=== PATIENT | male | born 1965 | race Caucasian/White ===

== ENCOUNTER 2018-06-02 14:24 | Inpatient (IN) | payer OTHER ==
[~2018-06-02] VITALS: Ht 185.4 cm; Wt 199.1 kg
--- NOTE | 2018-06-02 14:45 | NUR ---
BRIAN RA 52 YEAR OLD MALE C/O SOB, NAUSEA WHILE BEING TRANSFERED TO SNF FROM [facility] THEN BROUGHT TO [facility]. ALERT AND OREINTED X3, BREATHING EVEN, PATEINT DENIES PAIN AT THIS TIME. AWAITING TO BE SEEN BY .
[2018-06-02 15:54] LABS: BASOPHILS % (AUTO) 0.7 % (0.0-2.0); EOSINOPHILS % (AUTO) 2.5 % (0.0-6.0); HEMATOCRIT 44 % (39-51); LYMPHOCYTES # (AUTO) 0.7 /CMM (0.8-4.8); LYMPHOCYTES % (AUTO) 9.6 % (20.0-44.0); MEAN CORPUSCULAR HGB CONC 32 g/dl (31.0-36.0); MEAN CORPUSCULAR VOLUME 91 fL (80-96); MONOCYTES # (AUTO) 0.4 /CMM (0.1-1.30); MONOCYTES % (AUTO) 6.2 % (2.0-12.0); NEUTROPHILS # (AUTO) 5.5 /CMM (1.8-8.9); PLATELET COUNT (AUTO) 220 /CMM (150-450); RED BLOOD CELL COUNT(AUTO) 4.87 MIL/uL (4.5-6.0); WHITE BLOOD COUNT (AUTO) 6.8 K/uL (4.3-11.0)
[2018-06-02 16:15] LABS: CALCIUM, SERUM 9.4 mg/dL (8.5-10.1); CHLORIDE 102 mmol/L (98-107); CREATININE 0.9 mg/dL (0.6-1.3); GLUCOSE 95 mg/dL (74-106); POTASSIUM 4.5 mmol/L (3.5-5.1); SODIUM SERUM 140 mmol/L (136-145); UREA NITROGEN, BLOOD 18 mg/dL (7-18)
[2018-06-02 16:18] LABS: CARBON DIOXIDE 40 mmol/L (21-32)
[2018-06-02 16:27] LABS: ALKALINE PHOSPHATASE 63 U/L (46-116); BILIRUBIN,DIRECT 0.1 mg/dL (0.0-0.2); BILIRUBIN,TOTAL 0.3 mg/dL (0.2-1.0)
[2018-06-02 16:28] LABS: ALANINE AMINOTRANSFERASE 18 U/L (12-78); ALBUMIN 3.1 g/dL (3.4-5.0); ASPARTATE AMINOTRANSFERASE 8 U/L (15-37); TOTAL PROTEIN, SERUM 7.2 g/dL (6.4-8.2)
[2018-06-02 17:08] LABS: ABG BASE EXCESS 9.1 mmol/L; ABG OXYGEN SATURATION 88.3 % (92.0-98.5); ABG PH 7.358 (7.350-7.450); ABG PO2 55.7 mmHg (75.0-100.0); AaDO2 12.6 mmHg; COHb 1.4 % (0.5-1.5); MetHb 0.3 % (0.0-1.5); O2Hb 86.8 % (94.0-97.0); SITE, ABG Right Brachial; VENT MODE, BG ROOM AIR
--- NOTE | 2018-06-02 17:37 | NUR ---
TURNED IN FACESHEET TO ADMITTING
[2018-06-02 17:52] LABS: APPEARANCE,URINE Clear (CLEAR); BILIRUBIN,URINE Negative (NEGATIVE); BLOOD, URINE Moderate Ery/uL (NEGATIVE); COLOR,URINE Yellow (YELLOW); KETONES,URINE Negative (NEGATIVE); LEUKOCYTE ESTERASE ,URINE Negative (NEGATIVE); NITRITE, URINE Negative (NEGATIVE); PH,URINE 7.5 (5.0-8.0); PROTEIN,URINE Negative (NEGATIVE); UGLUCOSE Negative (NEGATIVE)
[2018-06-02 18:03] LABS: BACTERIA,URINE None seen /HPF (None Seen); SQUAMOUS EPITHELIAL CELL,UR Few /HPF (None Seen); WBC,URINE 0-2 /HPF (0-3)
--- NOTE | 2018-06-02 18:22 | NUR ---
KRYSTAL FROM [facility] NANOTECHNOLOGY ENGINEERING TECHNOLOGIST CALLED TO FOLLOW UP ON PATIENT STATUS
--- NOTE | 2018-06-02 18:25 | NUR ---
TRUST MANAGER ASSISTANT NUMBER GILMER [phone] [facility] [id number] DISCHARGE [phone]
--- NOTE | 2018-06-02 18:43 | NUR ---
PT. OVER THE WEIGHT LIMIT FOR CT (442 LBS.). INFORMED ER ABOUT IT.
--- NOTE | 2018-06-02 18:51 | NUR ---
DINNER PROVIDED FOR PATIENT. PATIENT REMAINS STABLE WITH NO DISTRESS NOTED. DENIES PAIN AT THIS TIME. WILL CONTINUE TO MONITOR
--- NOTE | 2018-06-02 19:12 | NUR ---
JANETTE PAGED, AQUATIC SCIENTIST
--- NOTE | 2018-06-02 19:27 | NUR ---
PATIENT WAITING TO BE ADMITTED. WAITING FOR APPROVAL. REPORT GIVEN TO AUDREY FOR GEO
--- NOTE | 2018-06-02 19:37 | NUR ---
CALLED NURSING SUP. FOR TELE BED
--- NOTE | 2018-06-02 19:49 | NUR ---
TELE 319
[2018-06-02] MEDS ORDERED: ONDANSETRON HCL/PF 4 MG/2 ML VIAL IVP PRN (20:00)
[2018-06-02] MEDS ORDERED: HYDROCODONE/APAP 5/325MG 1 EACH TABLET PO PRN (20:00)
[2018-06-02] MEDS ORDERED: Z GUARD REMEDY 2 OZ OINT TP PRN (20:00)
[2018-06-02] MEDS ORDERED: MAGNESIUM HYDROXIDE 30 ML UDC PO PRN (20:00)
[2018-06-02] MEDS ORDERED: MAG HYDROX/AL HYDROX/SIMETH 30 ML UDC PO PRN (20:00)
[2018-06-02] MEDS ORDERED: ZOLPIDEM TARTRATE 5 MG TABLET PO PRN (20:00)
--- NOTE | 2018-06-02 20:15 | NUR ---
REPORT GIVEN TO JOSELO LIU. PT AWAITING TRANSFER TO FLOOR.
[2018-06-02] MEDS ORDERED: DOCU100C36 PO (20:18)
[2018-06-02] MEDS ORDERED: PANT40TA2 PO (20:18)
[2018-06-02] MEDS ORDERED: DRON400T2 PO (20:18)
[2018-06-02] MEDS ORDERED: MODA200T22 PO (20:18)
[2018-06-02] MEDS ORDERED: LEVO500T75 PO (20:18)
[2018-06-02] MEDS ORDERED: METO50TA16 PO (20:18)
[2018-06-02] MEDS ORDERED: FLUT16SP BNOSTRILS (20:18)
[2018-06-02] MEDS ORDERED: TAMS0.4C34 PO (20:18)
[2018-06-02] MEDS ORDERED: POLY17PO4 PO (20:18)
[2018-06-02] MEDS ORDERED: SACC250C PO (20:18)
[2018-06-02] MEDS ORDERED: APIX5TAB PO (20:18)
[2018-06-02] MEDS ORDERED: FEE PK DOSING 1 MIN EA MC ONE (20:19)
[2018-06-02] MEDS: VANCOMYCIN 1.5 GM in IV D5W 500 ML IV SCH (21:32)
[2018-06-02 21:35] VITALS: BP 120/83
--- NOTE | 2018-06-02 21:35 | NUR ---
RN ADMITTING NOTES ADMITTED PT TO TELE ROOM 319 WITH ADMITTING DX: ACUTE RESPIRATORY DISTRESS. A/OX4. PT ON 3L O2, SATTING 95%. PT UNABLE TO LIE ON BED. NO C/O PAIN AT THIS TIME. PLACED ON TELEMONITOR. VS TAKEN, SKIN AND BODY ASSESSMENT ON LOWER EXTREMITIES NOT DONE, PT REFUSED TO REMOVE PANTS AND SOCKS. ORIENTED TO ROOM AND USE OF CALL LIGHT. WILL CONT TO MONITOR
[2018-06-02] MEDS ORDERED: POLYETHYLENE GLYCOL 3350 17 GM POWD.PACK PO PRN (23:00)
[2018-06-02] MEDS ORDERED: DOCUSATE SODIUM 100 MG CAPSULE PO PRN (23:00)
--- NOTE | 2018-06-02 23:15 | NUR ---
RN NOTES SEEN AND EXAMINED BY DR FUNG, ALL QUESTIONS AND CONCERNS ANSWERED BY MD. MD ORDERED GIVE LASIX IV 60MG IV NOW THEN DAILY. ORDERS NOTED AND CARRIED OUT
[2018-06-02] MEDS ORDERED: FUROSEMIDE 40 MG/4 ML VIAL IV SCH (23:30)
[2018-06-03] VITALS (68 sets, daily range): BP systolic 61–156; BP diastolic 17–134
--- NOTE | 2018-06-03 | NUR ---
RN NOTES NOTED PT TACHYPNEIC AND C/O SOB. HOB ELEVATED. SPO2 ON 85. O2 TITRATED UP TO 6L, STILL NOTED DESATTING. PLACED ON NON REBREATHER MASK, SPO2 WENT UP TO 95%. DR FUNG STILL IN THE UNIT, NOTIFIED RE: PT'S CONDITION, PER CONT TO MONITOR
--- NOTE | 2018-06-03 00:10 | NUR ---
RN NOTES NOTED PT STILL TACHYPNEIC AND C/O SOB. SPO2 DROPS TO 80% ON NONREBREATHER MASK, ANJELICA MOTA MADE AWARE, DR FUNG NOTIFIED. PT WAS SEEN BY , ORDERED OK TO TRANSFER TO ICU
--- NOTE | 2018-06-03 00:40 | NUR ---
RECEIVED PT IN RESPIRATORY DISTRESS ON NON REBREATHER MASK @ 15L. PT IS VISIBLY SHORT OF BREATH USING ACCESSORY MUSCLES IN EXCESS. PT WILL BE PLACED ON BIPAP BY RT WITH SETTING @ 18/8, FIO2 100%, PRESSURE SUPPORT 10. PT IS A/O X 4 BUT UNABLE TO VERBALIZE WELL DUE TO SOB. PT IS ON TELE WITH ST ON THE MONITOR. PT HAS RAC 18G THAT IS CLEAN DRY INTACT AND PATENT WITH SALINE FLUSH. PT GIVEN LASIX AND CUMMINGS WILL BE PLACED. BED IN LOW LOCK POSITION WITH RAILS UP X 2. CALL LIGHT WITHIN REACH AND ALL SAFETY MEASURE ENSURED AND CARRIED OUT. WILL CONTINUE TO MONITOR.
[2018-06-03] MEDS: CEFEPIME 1 GM in IV NS 0.9% 50 ML IV SCH ×2 (00:43→10:02)
--- NOTE | 2018-06-03 01:00 | NUR ---
CUMMINGS CATHETER PLACED WITH GOOD URINE FLOW.
[2018-06-03 04:44] LABS: BASOPHILS % (AUTO) 0.3 % (0.0-2.0); EOSINOPHILS % (AUTO) 0.6 % (0.0-6.0); HEMATOCRIT 44 % (39-51); HEMOGLOBIN 13.7 g/dL (13.5-17.5); LYMPHOCYTES # (AUTO) 0.2 /CMM (0.8-4.8); MEAN CORPUSCULAR HGB CONC 31 g/dl (31.0-36.0); MEAN CORPUSCULAR VOLUME 92 fL (80-96); MONOCYTES # (AUTO) 0.4 /CMM (0.1-1.30); MONOCYTES % (AUTO) 2.8 % (2.0-12.0); NEUTROPHILS # (AUTO) 14.9 /CMM (1.8-8.9); NEUTROPHILS % (AUTO) 95.3 % (43.0-81.0); PLATELET COUNT (AUTO) 235 /CMM (150-450); RED BLOOD CELL COUNT(AUTO) 4.79 MIL/uL (4.5-6.0); WHITE BLOOD COUNT (AUTO) 15.6 K/uL (4.3-11.0)
[2018-06-03 05:00] LABS: CALCIUM, SERUM 9.2 mg/dL (8.5-10.1); CREATININE 1.5 mg/dL (0.6-1.3); MAGNESIUM 1.6 mg/dL (1.8-2.4); POTASSIUM 4.7 mmol/L (3.5-5.1)
[2018-06-03] MEDS: VANCOMYCIN 1.5 GM in IV D5W 500 ML IV SCH (05:10)
--- NOTE | 2018-06-03 06:20 | NUR ---
PT BLOOD PRESSURE IS IN THE 60-70s PERFORMED ON MULTIPLE EXTREMITIES. WILL CONTACT DR. FUNG OFFSET SECOND PRESS OPERATOR FOR PRESSOR ORDERS.
--- NOTE | 2018-06-03 06:30 | NUR ---
NOTIFIED DR FUNG THAT PT BLOOD PRESSURE IS LOW IN THE 60-70, BUT MAY BE INACCURATE DUE TO PLACEMENT. RECEIVED ORDERS TO GIVE LEVOPHED SINGLE DOSE IF BLOOD PRESSURE MAINTAINS LOW. ALSO RECEIVED ORDERS FOR A PICC LINE. READBACK ORDERS PERFORMED AND ORDERS CARRIED OUT.
--- NOTE | 2018-06-03 06:50 | NUR ---
CONTINUED TO TRY TO GET BLOOD PRESSURE AND GOT BLOOD PRESSURE 97/49. WILL LET RECYCLE TO VERIFY GOOD BLOOD PRESSURE PLACEMENT. NO NEED FOR PRESSORS AT THIS TIME.
--- NOTE | 2018-06-03 07:00 | NUR ---
REPORT RECEIVED FROM AKIRA, DROWSY BUT NODS TO QUESTIONS APPROPRIATELY, FOLLOWS SIMPLE COMMANDS "SHOW ME 2 FINGERS"
--- NOTE | 2018-06-03 07:00 | NUR ---
BLOOD PRESSURE IS NOW 102/62. WILL CONTINUE TO MONITOR AND ENDORSE TO AM SHIFT.
[2018-06-03] MEDS: PANTOPRAZOLE 40 MG TABLET.DR PO SCH (07:30)
[2018-06-03 08:13] LABS: ABG BASE EXCESS 5.8 mmol/L; ABG OXYGEN SATURATION 92.7 % (92.0-98.5); ABG PCO2 76.4 mmHg (35.0-45.0); ABG PH 7.283 (7.350-7.450); ABG PO2 68.7 mmHg (75.0-100.0); AaDO2 275.1 mmHg; COHb 1.3 % (0.5-1.5); MetHb 0.6 % (0.0-1.5); O2Hb 90.9 % (94.0-97.0); SITE, ABG Right Radial
[2018-06-03] MEDS: FLUTICASONE PROPIONATE 16 GM BOTTLE NS SCH (09:00)
[2018-06-03] MEDS: TAMSULOSIN 0.4 MG CAP.SR.24H PO SCH (09:00)
[2018-06-03] MEDS ORDERED: METOPROLOL TARTRATE 50 MG TABLET PO SCH (09:00)
[2018-06-03] MEDS: DRONEDARONE HYDROCHLORIDE 400 MG TABLET PO SCH ×2 (09:00→17:00)
[2018-06-03] MEDS: APIXABAN 5 MG TABLET PO SCH ×2 (09:00→17:00)
[2018-06-03] MEDS: MODAFINIL 100 MG TABLET PO SCH (09:00)
[2018-06-03] MEDS ORDERED: FUROSEMIDE 40 MG/4 ML VIAL IV SCH (09:00)
[2018-06-03] MEDS ORDERED: Magnesium 1GM/D5W 100ML PREMIX 100 ML IV SCH (09:18)
[2018-06-03] MEDS: LACTOBACILLUS RHAMNOSUS GG 1 EACH CAP.SPRINK PO SCH ×2 (09:30→17:00)
--- NOTE | 2018-06-03 09:45 | NUR ---
NPO INCLUDING MEDS AT THIS TIME PER DR TRIVEDI UNTIL PT IS MORE ALERT AND AWAKE ON THE BIPAP
[2018-06-03] MEDS: ACETYLCYSTEINE 10% SOLN 400 MG/4 ML VIAL NEB SCH ×3 (10:50→23:36)
[2018-06-03] MEDS: ALBUTEROL HALF STRENGTH 1.25 MG/3 ML VIAL.NEB NEB SCH ×3 (10:50→23:36)
[2018-06-03] MEDS: IPRATROPIUM NEB FS 0.5 MG/2.5 ML AMPUL.NEB NEB SCH ×3 (10:50→23:37)
[2018-06-03 11:31] LABS: ABG BASE EXCESS 3.3 mmol/L; ABG OXYGEN SATURATION 92.9 % (92.0-98.5); ABG PCO2 64.7 mmHg (35.0-45.0); ABG PH 7.306 (7.350-7.450); ABG PO2 67.7 mmHg (75.0-100.0); AaDO2 143.1 mmHg; COHb 1.2 % (0.5-1.5); MetHb 0.5 % (0.0-1.5); O2Hb 91.3 % (94.0-97.0); SITE, ABG Right Radial
--- NOTE | 2018-06-03 14:00 | NUR ---
PICC LINE PLACEMENT ON rIGHT AC DONE AT BEDSIDE BY TECH;
--- NOTE | 2018-06-03 15:00 | NUR ---
TRANSFERRED TO BARIATRIC BED WITHOUT INCIDENT
--- NOTE | 2018-06-03 16:47 | NUR ---
MALATHI HERCULES AWARE OF CUMMINGS CATHETER IRRIGATION (NO SIGNIFICANT URINE OUTPUT DESPITE IRRIGATION,NO ORDERS AT THIS TIME
[2018-06-03] MEDS: VANCOMYCIN 1.25 GM in IV D5W 500 ML IV SCH (17:35)
--- NOTE | 2018-06-03 18:14 | NUR ---
STILL ON / OFF AWAKE ON BIPAP, UNABLE TO GIVE PO MEDS AT THIS TIME, MALATHI HERCULES AWARE ELIQUIS/MUSTMARCIA/MANUELE HELD AT THIS TIME
--- NOTE | 2018-06-03 19:00 | NUR ---
RECEIVED PT IN NO ACUTE DISTRESS IN BED. PT ON BIPAP WITH SETTING @ 18/8, FIO2 40%, PRESSURE SUPPORT 10. PT IS A/O X 4 BUT IS IN AND OUT OF SLEEP. PT IS ON TELE WITH SR ON THE MONITOR. PT HAS RAC 18G THAT IS CLEAN DRY INTACT AND PATENT WITH SALINE FLUSH. PT HAS RICARDA PICC LINE THAT IS CLEAN DRY INTACT AND PATENT WITH NS @ TKO. PT HAS CUMMINGS CATH THAT IS CLEAN DRY AND INTACT WITH AUDRA URINE DRAINING INTO BAG. BED IN LOW LOCK POSITION WITH RAILS UP X 2. CALL LIGHT WITHIN REACH AND ALL SAFETY MEASURE ENSURED AND CARRIED OUT. WILL CONTINUE TO MONITOR.
--- NOTE | 2018-06-03 19:09 | NUR ---
REPORT GIVEN TO AKIRA LIU
[2018-06-03] MEDS: CEFEPIME 2 GM in IV D5W 100 ML IV SCH (22:13)
[2018-06-04] VITALS (85 sets, daily range): BP systolic 67–130; BP diastolic 29–93
[2018-06-04] MEDS: ALBUTEROL HALF STRENGTH 1.25 MG/3 ML VIAL.NEB NEB SCH ×6 (03:53→23:14)
[2018-06-04] MEDS: IPRATROPIUM NEB FS 0.5 MG/2.5 ML AMPUL.NEB NEB SCH ×6 (03:53→23:14)
--- NOTE | 2018-06-04 03:54 | NUR ---
UNABLE TO GET BLOOD PRESSURE ABOVE 64 SYSTOLIC FROM BLOOD PRESSURE MACHINE AND WILL DISCONTINUE USING IT. WILL CONTINUE TO PERFORM MANUAL BLOOD PRESSURES Q1H AND ENDORSE TO AM SHIFT.
[2018-06-04 04:39] LABS: EOSINOPHILS % (AUTO) 2.8 % (0.0-6.0); HEMATOCRIT 39 % (39-51); HEMOGLOBIN 12.4 g/dL (13.5-17.5); LYMPHOCYTES # (AUTO) 0.5 /CMM (0.8-4.8); LYMPHOCYTES % (AUTO) 3.6 % (20.0-44.0); MEAN CORPUSCULAR HGB CONC 32 g/dl (31.0-36.0); MEAN CORPUSCULAR VOLUME 91 fL (80-96); MONOCYTES # (AUTO) 0.7 /CMM (0.1-1.30); MONOCYTES % (AUTO) 4.9 % (2.0-12.0); NEUTROPHILS # (AUTO) 13.4 /CMM (1.8-8.9); NEUTROPHILS % (AUTO) 88.7 % (43.0-81.0); PLATELET COUNT (AUTO) 205 /CMM (150-450); WHITE BLOOD COUNT (AUTO) 15.1 K/uL (4.3-11.0)
[2018-06-04 04:50] LABS: ALBUMIN 2.4 g/dL (3.4-5.0); BILIRUBIN,TOTAL 0.5 mg/dL (0.2-1.0); CALCIUM, SERUM 8.5 mg/dL (8.5-10.1); CREATININE 2.7 mg/dL (0.6-1.3); MAGNESIUM 1.8 mg/dL (1.8-2.4); PHOSPHORUS 4.3 mg/dL (2.5-4.9); POTASSIUM 4.6 mmol/L (3.5-5.1)
[2018-06-04] MEDS: VANCOMYCIN 1.25 GM in IV D5W 500 ML IV SCH (05:00)
--- NOTE | 2018-06-04 05:18 | NUR ---
VANCOMYCIN TROUGH 22, VANCOMYCIN DOSE HELD.
--- NOTE | 2018-06-04 06:21 | NUR ---
PERFORMED MANUAL BLOOD PRESSURE AND GOT LOW READING WITH 68/42. NOTIFIED CHARGE NURSE AND WILL START PT ON LEVOPHED DRIP PER ORDERS.
[2018-06-04] MEDS ORDERED: NOREPINEPHRINE 4 MG/4 ML AMPUL IV ONE (06:34)
[2018-06-04] MEDS: NOREPINEPHRINE 8 MG in IV D5W 500 ML IV PRN ×2 (06:37→15:09)
--- NOTE | 2018-06-04 06:49 | NUR ---
PT REMAINS IN NO ACUTE DISTRESS IN BED. PT BLOOD PRESSURE IS NOW WNL @ 105/56. PT IS NOW ON LEVO @ 2MCG AND TOLERATING WELL. ALL NEEDS MET, ALL ORDERS CARRIED OUT. WILL ENDORSE CARE TO AM RN FOR CONTINUITY OF CARE.
--- NOTE | 2018-06-04 07:00 | NUR ---
RN NOTES RECEIVED PT ON BED, ON BIPAP, TOLERATING CURRENT SETTING WELL, NO DISTRESS NOTED, O2 SAT 97% , ON TELE SR HR IN 80'S , R AC IV SITE G18 AND R UPPER ARM PICC LINE SITE CLEAN, DRY AND INTACT, LEVO AT 2MCG/ MIN RUNNING , CUMMINGS CATH INTACT AND DRINING TO GRAVITY WITH AUDRA COLOR URINE , BED IN LOW LOCK POSITION WITH RAILS UP X 3. CALL LIGHT WITHIN REACH , ALL SAFETY MEASURE ENSURED , WILL CONTINUE TO MONITOR.
[2018-06-04] MEDS: PANTOPRAZOLE 40 MG TABLET.DR PO SCH ×2 (07:30→08:16)
[2018-06-04] MEDS: ACETYLCYSTEINE 10% SOLN 400 MG/4 ML VIAL NEB SCH ×3 (07:35→23:14)
[2018-06-04] MEDS: IV NS 0.9% 1,000 ML IV SCH ×2 (08:08→15:08)
[2018-06-04] MEDS: LACTOBACILLUS RHAMNOSUS GG 1 EACH CAP.SPRINK PO SCH ×2 (08:15→16:45)
[2018-06-04] MEDS: DRONEDARONE HYDROCHLORIDE 400 MG TABLET PO SCH ×2 (08:15→16:45)
[2018-06-04] MEDS: MODAFINIL 100 MG TABLET PO SCH (08:15)
[2018-06-04] MEDS: TAMSULOSIN 0.4 MG CAP.SR.24H PO SCH (08:16)
[2018-06-04] MEDS: APIXABAN 5 MG TABLET PO SCH ×3 (08:17→16:45)
[2018-06-04] MEDS: FLUTICASONE PROPIONATE 16 GM BOTTLE NS SCH (08:17)
--- NOTE | 2018-06-04 08:53 | NUR ---
pt taken off bipap and placed on 1lnc per dr alvarado's order. abg to be taken in 1 hr Addendum: 06/04/18 at 0853 by ASTRID ECHEVERRIA RT Amended: Links added.
[2018-06-04] MEDS: CEFEPIME 2 GM in IV D5W 100 ML IV SCH ×2 (09:49→22:18)
--- NOTE | 2018-06-04 10:00 | NUR ---
RN NOTES UNABLE TO GET GOOD BP READY ON L ARM. BP TAKEN ON R RADIAL ARTERY .
[2018-06-04 10:15] LABS: ABG BASE EXCESS 7.3 mmol/L; ABG OXYGEN SATURATION 85.4 % (92.0-98.5); ABG PCO2 69.9 mmHg (35.0-45.0); ABG PH 7.326 (7.350-7.450); ABG PO2 51.9 mmHg (75.0-100.0); AaDO2 94.5 mmHg; COHb 0.8 % (0.5-1.5); MetHb 0.4 % (0.0-1.5); O2Hb 84.4 % (94.0-97.0); SITE, ABG Left Radial; VENT MODE, BG nasal cannula
[2018-06-04] MEDS: VANCOMYCIN 1 GM in IV D5W 250 ML IV SCH ×2 (10:48→23:22)
--- NOTE | 2018-06-04 12:00 | NUR ---
RN NOTES PT REFUSED TO EAT LUNCH, ON 3 L O2 N/C O2 SAT 89%, NO DISTRESS NOTED, CONTINUE TO MONITOR.
--- NOTE | 2018-06-04 14:00 | NUR ---
RN NOTES RT NOTIFIED REGARDING NOCTURNAL BIPAP .
[2018-06-04 14:57] LABS: APPEARANCE,URINE SL CLOUDY (CLEAR); BILIRUBIN,URINE NEGATIVE (NEGATIVE); BLOOD, URINE 3+ Ery/uL (NEGATIVE); COLOR,URINE YELLOW (YELLOW); KETONES,URINE NEGATIVE (NEGATIVE); LEUKOCYTE ESTERASE ,URINE NEGATIVE (NEGATIVE); NITRITE, URINE NEGATIVE (NEGATIVE); PROTEIN,URINE 1+ mg/dl (NEGATIVE); UGLUCOSE NEGATIVE (NEGATIVE); UROBILINOGEN,URINE 0.2 EU/dL (0.2)
[2018-06-04 15:10] LABS: CREATININE, URINE 160.9 MG/DL (30.0-125.0)
[2018-06-04 15:12] LABS: BACTERIA,URINE Rare /HPF (None Seen); RBC,URINE 51-80 /HPF (0-2); SQUAMOUS EPITHELIAL CELL,UR Few /HPF (None Seen)
[2018-06-04 15:48] LABS: URINE TOTAL PROTEIN 85.8 mg/dL (0-11.9)
[2018-06-04 15:59] LABS: EOSINOPHIL,URINE None Seen
--- NOTE | 2018-06-04 18:23 | NUR ---
RN NOTES PT STABLE, O2 SAT 89%, PT ON LEVO AT 6MCG/MIN AT THIS TIME, NS AT 200CC /HR RUNNING VIA R UPPER ARM PICC LINE, PT REFUSED TO TURN SIDE TO SIDE, SR UP x3, CALL LIGHT WITHIN EASY REACH, WILL ENDOSE TO [facility] REPORTER NURSE FOR CONTINUITY OF CARE .
--- NOTE | 2018-06-04 19:00 | NUR ---
RECEIVED PT IN NO ACUTE DISTRESS IN BED. PT ON VENTURI MASK @ 35%/9 LPM AND TOLERATING WELL WITH O2 SAT 2 88%. PT HAS NOCTURNAL AVAPS WITH SETTING @ RATE 14, TV 600, FIO2 35%, PSV- 5-25, PEEP 10. PT IS A/O X 4 BUT IS IN AND OUT OF SLEEP. PT IS ON TELE WITH SR ON THE MONITOR. PT HAS RAC 18G THAT IS CLEAN DRY INTACT AND PATENT WITH SALINE FLUSH. PT HAS RICARDA PICC LINE THAT IS CLEAN DRY INTACT AND PATENT WITH LEVO @ 6MCG AND NS @ TKO. PT HAS CUMMINGS CATH THAT IS CLEAN DRY AND INTACT WITH AUDRA URINE DRAINING INTO BAG. BED IN LOW LOCK POSITION WITH RAILS UP X 2. CALL LIGHT WITHIN REACH AND ALL SAFETY MEASURE ENSURED AND CARRIED OUT. WILL CONTINUE TO MONITOR.
--- NOTE | 2018-06-04 19:50 | NUR ---
RCVD PT ON VENTURI MASK 35%,9L. PLACED PT ON NOCTURNAL AVAPS MODE, RATE 14, TV 600, PEEP 10. PSV 5-25 PER MD'S ORDER. SKIN REDNESS NOTED AROUND THE BRIDGE OF THE NOSE, ALEXA CHAMPION NOTIFIED. Q4 BREATHING TX GIVEN, NO ADVERSE REACTION NOTED. WILL CONTINUE TO MONITOR THE PT.
[2018-06-05] VITALS (117 sets, daily range): BP systolic 71–138; BP diastolic 33–80
[2018-06-05] MEDS: ALBUTEROL HALF STRENGTH 1.25 MG/3 ML VIAL.NEB NEB SCH ×6 (03:16→22:57)
[2018-06-05] MEDS: IPRATROPIUM NEB FS 0.5 MG/2.5 ML AMPUL.NEB NEB SCH ×6 (03:16→22:57)
[2018-06-05 04:50] LABS: BASOPHILS % (AUTO) 0.2 % (0.0-2.0); EOSINOPHILS % (AUTO) 4.1 % (0.0-6.0); HEMATOCRIT 41 % (39-51); HEMOGLOBIN 12.9 g/dL (13.5-17.5); LYMPHOCYTES # (AUTO) 1.2 /CMM (0.8-4.8); LYMPHOCYTES % (AUTO) 10.1 % (20.0-44.0); MEAN CORPUSCULAR HGB CONC 32 g/dl (31.0-36.0); MEAN CORPUSCULAR VOLUME 91 fL (80-96); MONOCYTES # (AUTO) 0.5 /CMM (0.1-1.30); NEUTROPHILS # (AUTO) 9.8 /CMM (1.8-8.9); NEUTROPHILS % (AUTO) 81.6 % (43.0-81.0); PLATELET COUNT (AUTO) 205 /CMM (150-450); RED BLOOD CELL COUNT(AUTO) 4.48 MIL/uL (4.5-6.0)
[2018-06-05 05:08] LABS: ALBUMIN 2.4 g/dL (3.4-5.0); BILIRUBIN,TOTAL 0.6 mg/dL (0.2-1.0); CALCIUM, SERUM 8.9 mg/dL (8.5-10.1); CREATININE 1.4 mg/dL (0.6-1.3); PHOSPHORUS 3.1 mg/dL (2.5-4.9); POTASSIUM 4.7 mmol/L (3.5-5.1); TOTAL PROTEIN, SERUM 6.2 g/dL (6.4-8.2)
[2018-06-05] MEDS: NOREPINEPHRINE 8 MG in IV D5W 500 ML IV PRN ×2 (05:09→09:58)
--- NOTE | 2018-06-05 07:05 | NUR ---
PT REMAINS IN NO ACUTE DISTRESS IN BED. PT DID NOT HAVE ANY SIGNIFICANT CHANGE IN CONDITION DURING SHIFT. PT TOLERATED NOCTURNAL AVAPS WELL WITH O2 SAT @ 94%. ALL NEEDS MET, ALL ORDERS CARRIED OUT. WILL ENDORSE CARE TO AM RN FOR CONTINUITY OF CARE.
[2018-06-05] MEDS: ACETYLCYSTEINE 10% SOLN 400 MG/4 ML VIAL NEB SCH ×3 (07:17→22:57)
--- NOTE | 2018-06-05 07:35 | NUR ---
INITIAL ASSISTANT PROGRAM MANAGER NOTE RCVD PT SOMNOLENT, ABLE TO OPEN EYES AND FOLLOW COMMANDS WHEN NAME IS CALLED. SR ON MONITOR. OFF BIPAP ON VENTURI MASK TOLERATING WELL. CUMMINGS TO GRAVITY DRAINING CLOUDY, YELLOW URINE. IV SITES C/D/I/PATENT, NO S/O INFILTRATION/PHLEBITIS OBSERVED UPON FLUSHING. PT ON LEVO TITRATING ORDERED. PT ON BARIMAXX BED WITH CONTINUOUS ROTATION IMPLEMENTED. WILL CONTINUE TO MONITOR PT FOR SAFETY AND COMFORT. BED IN LOW AND LOCKED POSITION. CALL LIGHT WITHIN REACH. HEAD OF BED ELEVATED.
[2018-06-05] MEDS ORDERED: IV D5/ 0.9% NACL 1,000 ML IV ONE (08:30)
[2018-06-05] MEDS: DRONEDARONE HYDROCHLORIDE 400 MG TABLET PO SCH ×2 (08:34→16:13)
[2018-06-05] MEDS: LACTOBACILLUS RHAMNOSUS GG 1 EACH CAP.SPRINK PO SCH ×2 (08:34→16:13)
[2018-06-05] MEDS: PANTOPRAZOLE 40 MG TABLET.DR PO SCH (08:34)
[2018-06-05] MEDS: TAMSULOSIN 0.4 MG CAP.SR.24H PO SCH (08:34)
[2018-06-05] MEDS: MODAFINIL 100 MG TABLET PO SCH (08:34)
[2018-06-05] MEDS: FLUTICASONE PROPIONATE 16 GM BOTTLE NS SCH (08:36)
[2018-06-05] MEDS: APIXABAN 5 MG TABLET PO SCH ×2 (08:36→16:13)
[2018-06-05] MEDS: IV D5/ 0.9% NACL 1,000 ML IV PRN ×2 (08:41→21:00)
--- NOTE | 2018-06-05 09:13 | NUR ---
TALENT ACQUISITION SPECIALIST NOTE PT HAS POOR APPETITE ONLY HAD 2 BITES OF REQUESTED OATMEAL. DR. TRIVEDI STARTED PT ON IVF. WILL CONTINUE TO MONITOR.
[2018-06-05] MEDS: CEFEPIME 2 GM in IV D5W 100 ML IV SCH ×2 (09:23→21:10)
[2018-06-05] MEDS: VANCOMYCIN 1 GM in IV D5W 250 ML IV SCH ×2 (10:39→23:04)
--- NOTE | 2018-06-05 12:27 | NUR ---
DIRECTOR HEALTH NOTE PT BECAME MORE LETHARGIC THIS AM, BIPAP WAS RE-STARTED BY RT. DR. TRIVEDI AWARE. ABG REVIEWED BY MD WITHOUT ANY CHANGES ORDERED. PT'S TEMP 100.5 COOLING MEASURES STARTED, PER DR. TRIVEDI NOT TO PANCULTURE PT. WILL CONTINUE TO MONITOR.
[2018-06-05 12:34] LABS: ABG BASE EXCESS 6.1 mmol/L; ABG PCO2 63.4 mmHg (35.0-45.0); ABG PH 7.344 (7.350-7.450); ABG PO2 65.4 mmHg (75.0-100.0); AaDO2 110.5 mmHg; COHb 1.2 % (0.5-1.5); MetHb 0.5 % (0.0-1.5); O2Hb 90.4 % (94.0-97.0); SITE, ABG Right Radial; VENT MODE, BG AVAPS 25/11 600 EPAP 10
[2018-06-05] MEDS ORDERED: NOREPINEPHRINE 16 MG in IV D5W 500 ML IV PRN (13:00)
--- NOTE | 2018-06-05 18:30 | NUR ---
BIOINFORMATICS ENGINEER NOTE PT AWAKE AND ALERT, RESTING IN BED REMAINS ON BIPAP TOLERATING WELL, SR ON MONITOR SHOWING NO S/O DISTRESS/PAIN. CUMMINGS TO GRAVITY DRAINING CLOUDY, YELLOW URINE. IV SITES C/D/I/PATENT. NO S/O INFILTRATION/PHLEBITIS OBSERVED IVF INFUSING ORDERED. LEVO TITRATED DOWN ORDERED. PT'S CARE WILL BE ENDORSED TO NEUROSCIENCE DIRECTOR NA RN FOR CONTINUITY OF CARE. BED IN LOW AND LOCKED POSITION. CALL LIGHT WITHIN REACH. HEAD OF BED ELEVATED.
--- NOTE | 2018-06-05 19:45 | NUR ---
ICU/STUD MASTER/MISTRESS RECEIVED REPORT FROM DAY NURSE. SEE FLOWSHEET FOR ASSESSMENT AND SKIN ISSUES WHICH ARE ADDRESSED, ALONG WITH THE INTERVENTIONS. PT WAS TURNED AND REPOSITIONED FOR COMFORT AND CARE. WILL CONTINUE TO MONITOR THIS PT. PT APPEARS TO BE COMFORTABLE NO ACUTE DISTRESS SEEN AT THIS TIME.
--- NOTE | 2018-06-05 22:45 | NUR ---
MELYSSA [phone] WAS CALLED. PT TALKED TO THIS PERSON. MELYSSA CALLED SAID THAT TO CALL HER IF THERE IS ANY PROBLEMS LATER TONIGHT.
--- NOTE | 2018-06-05 23:26 | NUR ---
TANMAY LARSEN [phone] WAS CALLED BY REQUEST FROM PT. THIS WAS DONE AND LEFT MESSAGE.
[2018-06-06] VITALS (84 sets, daily range): BP systolic 90–153; BP diastolic 44–80
[2018-06-06] MEDS: IPRATROPIUM NEB FS 0.5 MG/2.5 ML AMPUL.NEB NEB SCH ×6 (03:31→23:38)
[2018-06-06] MEDS: ALBUTEROL HALF STRENGTH 1.25 MG/3 ML VIAL.NEB NEB SCH ×6 (03:31→23:38)
[2018-06-06 04:48] LABS: BASOPHILS % (AUTO) 0.2 % (0.0-2.0); EOSINOPHILS % (AUTO) 7.3 % (0.0-6.0); HEMATOCRIT 38 % (39-51); HEMOGLOBIN 12.2 g/dL (13.5-17.5); LYMPHOCYTES # (AUTO) 1.2 /CMM (0.8-4.8); LYMPHOCYTES % (AUTO) 10.9 % (20.0-44.0); MEAN CORPUSCULAR HGB CONC 32 g/dl (31.0-36.0); MEAN CORPUSCULAR VOLUME 90 fL (80-96); MONOCYTES % (AUTO) 8.9 % (2.0-12.0); NEUTROPHILS % (AUTO) 72.7 % (43.0-81.0); PLATELET COUNT (AUTO) 197 /CMM (150-450); WHITE BLOOD COUNT (AUTO) 11.1 K/uL (4.3-11.0)
[2018-06-06 05:01] LABS: CALCIUM, SERUM 8.9 mg/dL (8.5-10.1); MAGNESIUM 1.9 mg/dL (1.8-2.4); PHOSPHORUS 2.4 mg/dL (2.5-4.9); POTASSIUM 4.3 mmol/L (3.5-5.1)
--- NOTE | 2018-06-06 07:37 | NUR ---
INITIAL FIRE FIGHTER AIRPORT NOTE RCVD PT AWAKE AND ALERT, SHOWING NO S/O DISTRESS/PAIN AT THIS TIME. SR ON MONITOR WITH OCCASIONAL PAC's. TOLERATING BIPAP WITH AVAPS SETTINGS WELL. CUMMINGS TO GRAVITY DRAINING CLOUDY, YELLOW URINE. IV SITES C/D/I/PATENT. NO S/O INFILTRATION/PHLEBITIS OBSERVED, IVF INFUSING ORDERED. WILL CONTINUE TO MONITOR PT FOR SAFETY AND COMFORT. BED IN LOW AND LOCKED POSITION. CALL LIGHT WITHIN REACH. HEAD OF BED ELEVATED.
[2018-06-06] MEDS: ACETYLCYSTEINE 10% SOLN 400 MG/4 ML VIAL NEB SCH ×3 (07:58→23:38)
[2018-06-06] MEDS: APIXABAN 5 MG TABLET PO SCH ×2 (08:04→16:04)
[2018-06-06] MEDS: LACTOBACILLUS RHAMNOSUS GG 1 EACH CAP.SPRINK PO SCH ×2 (08:04→16:03)
[2018-06-06] MEDS: MODAFINIL 100 MG TABLET PO SCH (08:04)
[2018-06-06] MEDS: PANTOPRAZOLE 40 MG TABLET.DR PO SCH (08:05)
[2018-06-06] MEDS: TAMSULOSIN 0.4 MG CAP.SR.24H PO SCH (08:05)
[2018-06-06] MEDS: DRONEDARONE HYDROCHLORIDE 400 MG TABLET PO SCH ×2 (08:05→16:03)
[2018-06-06] MEDS: FLUTICASONE PROPIONATE 16 GM BOTTLE NS SCH (08:05)
[2018-06-06] MEDS: CEFEPIME 2 GM in IV D5W 100 ML IV SCH (09:35)
[2018-06-06] MEDS: IV D5/ 0.9% NACL 1,000 ML IV PRN ×2 (09:41→21:28)
--- NOTE | 2018-06-06 09:50 | NUR ---
INTERIOR DESIGN PROGRAM CHAIR NOTE PT TRANSITIONED TO NC TOLERATING WELL. GOOD PO INTAKE, OVERALL IMPROVEMENT SINCE YESTERDAY. WILL CONTINUE TO MONITOR.
[2018-06-06] MEDS: VANCOMYCIN 1 GM in IV D5W 250 ML IV SCH ×2 (11:38→23:09)
[2018-06-06 13:00] LABS: ABG BASE EXCESS 5.7 mmol/L; ABG OXYGEN SATURATION 94.6 % (92.0-98.5); ABG PH 7.391 (7.350-7.450); ABG PO2 74.5 mmHg (75.0-100.0); AaDO2 97.7 mmHg; COHb 1.3 % (0.5-1.5); MetHb 0.3 % (0.0-1.5); O2Hb 93.1 % (94.0-97.0); SITE, ABG Right Radial; VENT MODE, BG NASAL CANNULA
--- NOTE | 2018-06-06 13:18 | NUR ---
GAS ENGINE OPERATOR COMPRESSORS NOTE PT STATED TO FEEL UNWELL, UNABLE TO DESCRIBE IF BEING IN PAIN OR SHORT OF BREATH, APPEARS TIRED, VITAL SIGNS REMAIN STABLE, OFF PRESSORS, AND TOLERATING O2 VIA NASAL CANNULA [address] TRIVEDI INFORMED. RECOMMENDED ABG TO BE DONE. RESULTS COMMUNICATED TO DR. TRIVEDI. RECOMMENDS NO CHANGES. WILL CONTINUE TO MONITOR PT.
[2018-06-06] MEDS ORDERED: K PHOS NEUTRAL 250 MG TABLET PO ONE (15:00)
--- NOTE | 2018-06-06 18:35 | NUR ---
SHIFT ENGINEER NOTE PT REMAINS STABLE OFF BIPAP, TOLERATING O2 VIA NC WELL. SR ON MONITOR. AWAKE AND ALERT, SHOWING NO S/O DISTRESS/PAIN AT THIS TIME. CUMMINGS TO GRAVITY DRAINING CLOUDY, YELLOW URINE. IV SITES C/D/I/PATENT, NO S/O INFILTRATION/PHLEBITIS OBSERVED IVF INFUSING ORDERED. OFF LEVO SINCE THIS AM MAINTAINING BP. GOOD PO INTAKE. PT'S CARE WILL BE ENDORSED TO LEAD APPLICATIONS DEVELOPER RN FOR CONTINUITY OF CARE. BED IN LOW AND LOCKED POSITION. CALL LIGHT WITHIN REACH. HEAD OF BED ELEVATED. PT DECLINED BED BATH THIS AFTERNOON, STATING THAT HE WAS TOO TIRED TO DO IT, ORAL CARE AND FACE WASHED PERFORMED.
--- NOTE | 2018-06-06 19:00 | NUR ---
APRICOT PACKER NOTES RECEIVED PATIENT AWAKE,ALERT NOT IN ANY DISTRESS ,WITH o2 VIA NC 4L/MIN. TOLERATING WELL,+ COUGH ,ENCOURAGED DEEP BREATHING AND COUGHING (NOTED TO HAVE THICK SECRETIONS /PRODUCTIVE COUGH).CONVERSES,COHERENT AND APPROPRIATE. PICC LINE @ RICARDA ,INTACT. COMFORT CARE DONE,NEEDS ATTENDED.
--- NOTE | 2018-06-06 22:00 | NUR ---
3RD GRADE TEACHER NOTES REMIANS STABLE,NOT IN NAY DISTRESS. 2300 OFFERED PATIENT TO HAVE PM CARE(REFUSED BATH RHE WHOLE DAY),PATIENT STILL REFUSING TO GET WASHED UP OR EVEN TO TURN AND REPOSITION.
[2018-06-07] VITALS (35 sets, daily range): BP systolic 83–139; BP diastolic 38–84
--- NOTE | 2018-06-07 | NUR ---
SHOVE UP NOTES REMAINS STABLE ,NOT IN ANY DISTRESS ,STILL AWAKE,TALKING ON THE PHONE,DOES NOT WANT TO USE BIPAP MACHINE AT THIS POINT,MAINTAINED ON NASAL CANNULA.WILL CLOSELY MONITOR .
--- NOTE | 2018-06-07 01:00 | NUR ---
STILL AWAKE,ENCOURAGE PATIEN TO BE ON BIPAP NOW,REFUSED,STATES THAT JUST MENTIONING BIPAP MAKES HIM ANXIOUS AND STRESSED ,HE DOES NOT WANT TO USE BIPAP. WILL CLOSELY MONITOR .WILL KEEP NASAL CANNULA @ 4 L.MIN.
--- NOTE | 2018-06-07 02:00 | NUR ---
SLEEPS ON AND OFF ,SATURATING 90-92% WITH 4 LIOTERS NASAL CANNULA. 0300 AM CARE DONE.TOLERATED FLAY POSITION WITH NO SOB.
[2018-06-07] MEDS: IPRATROPIUM NEB FS 0.5 MG/2.5 ML AMPUL.NEB NEB SCH ×6 (03:42→23:41)
[2018-06-07] MEDS: ALBUTEROL HALF STRENGTH 1.25 MG/3 ML VIAL.NEB NEB SCH ×6 (03:42→23:41)
--- NOTE | 2018-06-07 04:00 | NUR ---
PATIENT DESATURATING MORE OFTEN 88-89 % THEN BACK TO LOW 90'S.TRIED TO CONVINCE PATIENT AGAIN TO BE ON BIPAP NOW(WHILE HES ASLEEP),BUT STILL REFUSING.REMAINS AWAKE AND ALERT , FALLS ASLEEP EASILY BUT AWAKENS EASILY WELL.WILL CONTINUE TO MONITOR.
[2018-06-07 05:30] LABS: BASOPHILS % (AUTO) 0.2 % (0.0-2.0); EOSINOPHILS % (AUTO) 8.6 % (0.0-6.0); HEMATOCRIT 37 % (39-51); HEMOGLOBIN 11.8 g/dL (13.5-17.5); LYMPHOCYTES # (AUTO) 1.8 /CMM (0.8-4.8); LYMPHOCYTES % (AUTO) 21.9 % (20.0-44.0); MEAN CORPUSCULAR HGB CONC 32 g/dl (31.0-36.0); MEAN CORPUSCULAR VOLUME 90 fL (80-96); MONOCYTES % (AUTO) 12.5 % (2.0-12.0); NEUTROPHILS # (AUTO) 4.6 /CMM (1.8-8.9); NEUTROPHILS % (AUTO) 56.8 % (43.0-81.0); PLATELET COUNT (AUTO) 189 /CMM (150-450); RED BLOOD CELL COUNT(AUTO) 4.06 MIL/uL (4.5-6.0); WHITE BLOOD COUNT (AUTO) 8.1 K/uL (4.3-11.0)
[2018-06-07 05:44] LABS: CALCIUM, SERUM 8.6 mg/dL (8.5-10.1); CREATININE 0.9 mg/dL (0.6-1.3); MAGNESIUM 1.7 mg/dL (1.8-2.4); POTASSIUM 4.1 mmol/L (3.5-5.1)
--- NOTE | 2018-06-07 06:00 | NUR ---
PATIENT DESATURATING MORE INTO THE 70'S ,RESPIRATORY THERAPIST WAS ABLE TO CONVINCE PATIENT TO USE BIPAP AFTER EXPLANATION BUT PATIENT NOT HAPPY
--- NOTE | 2018-06-07 07:00 | NUR ---
REPORT GIVEN TO LEONILA LIU
--- NOTE | 2018-06-07 07:15 | NUR ---
SUPERVISOR SEWER SYSTEM INITIAL NOTES RECEIVED PT FROM NIGHTSHIFT RN IN STABLE CONDITION. PT TAKEN OFF BIPAP AT THIS TIME AND SATING 92% ON 4L VIA NC. NO SOB OR ACUTE SIGNS OF DISTRESS NOTED. BREATHING IS EVEN AND UNLABORED. HE DENIES ANY PAIN AT THIS TIME. RIGHT UPPER ARM PICC LINE NOTED TO BE PATENT AND INTACT. NO REDNESS OR SIGNS OF INFILTRATION NOTED. PT TOLERATING IV INFUSION WELL. CUMMINGS CATHETER NOTED TO BE C/D/I. BED IN LOW LOCKED POSITION, SIDE RIAL SUP X2, CALL LIGHT WITHIN REACH. WILL CONTINUE TO MONITOR
[2018-06-07] MEDS: ACETYLCYSTEINE 10% SOLN 400 MG/4 ML VIAL NEB SCH ×3 (07:40→23:41)
--- NOTE | 2018-06-07 09:00 | NUR ---
PADDER CUSHION NOTES: AM CARE PT REFUSING BED BATH AT THIS TIME. PER PT "I WAS CLEANED BY THE PREVIOUS NURSE". YARIEL/CUMMINGS CARE RENDERED.
[2018-06-07] MEDS: DRONEDARONE HYDROCHLORIDE 400 MG TABLET PO SCH ×2 (09:10→16:42)
[2018-06-07] MEDS: FLUTICASONE PROPIONATE 16 GM BOTTLE NS SCH (09:10)
[2018-06-07] MEDS: MODAFINIL 100 MG TABLET PO SCH (09:10)
[2018-06-07] MEDS: LACTOBACILLUS RHAMNOSUS GG 1 EACH CAP.SPRINK PO SCH ×2 (09:10→16:42)
[2018-06-07] MEDS: TAMSULOSIN 0.4 MG CAP.SR.24H PO SCH (09:10)
[2018-06-07] MEDS: PANTOPRAZOLE 40 MG TABLET.DR PO SCH (09:10)
[2018-06-07] MEDS: APIXABAN 5 MG TABLET PO SCH ×2 (09:11→16:42)
[2018-06-07] MEDS: IV D5/ 0.9% NACL 1,000 ML IV PRN (09:11)
[2018-06-07] MEDS: VANCOMYCIN 1 GM in IV D5W 250 ML IV SCH ×2 (10:12→22:50)
[2018-06-07] MEDS ORDERED: Magnesium 1GM/D5W 100ML PREMIX 100 ML IV SCH (10:30)
--- NOTE | 2018-06-07 16:22 | NUR ---
CHILLER OPERATOR NOTES: MD ORDERS DR. HERCULES UPDATED ON PT'S RECENT CXR. TELEPHONE ORDER GIVEN TO D/C IV FLUIDS. MD ALSO MADE AWARE THAT PT IS COMPLAINING OF ECZEMA ON HIS FACE. TELEPHONE ORDER OBTAINED FOR KETOCONAZOLE 2% BID. WILL CARRY OUT ORDERS DIRECTED
[2018-06-07] MEDS: KETOCONAZOLE 2% CREAM 15 GM TUBE TP SCH (16:42)
--- NOTE | 2018-06-07 19:20 | NUR ---
APPRENTICE COOK CLOSING NOTES PT REMAINS STABLE ON 4L VIA NC. NO ACUTE CHANGES IN CONDITION DURING SHIFT. SAFETY PRECAUTIONS REMAIN IN PLACE. INVASIVE LINES REMAIN PATENT AND INTACT. WILL ENDORSE TO ALEXA CHAMPION FOR GEO.
--- NOTE | 2018-06-07 21:00 | NUR ---
GAVE REPORT TO MARCELINO MABRY RN FOR CONTINUITY OF CARE.
--- NOTE | 2018-06-07 21:40 | NUR ---
TRANSPORTED PT TO [facility] ACCORDING TO ACLS PROTOCOLS. PT TOLERATED TRANSFER WELL. TRANSFERRED PT TO MARCELINO [facility]OT[facility] RN FOR CONTINUITY OF CARE.
--- NOTE | 2018-06-07 21:45 | NUR ---
RN INITIAL NOTES RECEIVED PT FROM ICU IN STABLE CONDITION. PT HAS AN ORDER FOR BIPAP HS,AT THIS TIME HE IS ON 4L VIA NC AND SATING 98% . NO SOB OR ACUTE SIGNS OF DISTRESS NOTED. BREATHING IS EVEN AND UNLABORED. HE DENIES ANY PAIN AT THIS TIME. RIGHT UPPER ARM PICC LINE NOTED TO BE PATENT AND INTACT. NO REDNESS OR SIGNS OF INFILTRATION NOTED ITS S/L . CUMMINGS CATHETER NOTED TO BE C/D/I. BIG BOY BED IN LOW LOCKED POSITION, SIDE RIAL SUP X2, CALL LIGHT WITHIN REACH. WILL CONTINUE TO MONITOR.
[2018-06-07] MEDS: ACETAMINOPHEN 325 MG TABLET PO PRN (22:55)
[2018-06-08] VITALS (7 sets, daily range): BP systolic 95–129; BP diastolic 54–79
--- NOTE | 2018-06-08 02:17 | NUR ---
RT PATIENT REFUSED TO BE PLACED ON BIPAP AT THIS TIME. PATIENT PREFERS TO HAVE THE VENTURI MASK AT 35% ON HIM. PATIENT STABLE AND TOLERATED CURRENT SETTINGS . WILL CONTINUE TO MONITOR PATIENT Addendum: 06/08/18 at 0221 by MARTIN SCHOFIELD RT Amended: Links added.
[2018-06-08] MEDS: IPRATROPIUM NEB FS 0.5 MG/2.5 ML AMPUL.NEB NEB SCH ×5 (03:40→20:07)
[2018-06-08] MEDS: ALBUTEROL HALF STRENGTH 1.25 MG/3 ML VIAL.NEB NEB SCH ×5 (03:41→20:07)
[2018-06-08] MEDS: ACETAMINOPHEN 325 MG TABLET PO PRN (05:39)
[2018-06-08 06:12] LABS: BASOPHILS # (AUTO) 0.1 /CMM (0.0-0.2); BASOPHILS % (AUTO) 0.6 % (0.0-2.0); EOSINOPHILS % (AUTO) 9.2 % (0.0-6.0); HEMATOCRIT 37 % (39-51); HEMOGLOBIN 11.9 g/dL (13.5-17.5); LYMPHOCYTES # (AUTO) 2.6 /CMM (0.8-4.8); LYMPHOCYTES % (AUTO) 28.2 % (20.0-44.0); MEAN CORPUSCULAR HGB CONC 32 g/dl (31.0-36.0); MEAN CORPUSCULAR VOLUME 91 fL (80-96); MONOCYTES % (AUTO) 10.6 % (2.0-12.0); NEUTROPHILS # (AUTO) 4.7 /CMM (1.8-8.9); NEUTROPHILS % (AUTO) 51.4 % (43.0-81.0); PLATELET COUNT (AUTO) 210 /CMM (150-450); RED BLOOD CELL COUNT(AUTO) 4.12 MIL/uL (4.5-6.0); WHITE BLOOD COUNT (AUTO) 9.1 K/uL (4.3-11.0)
[2018-06-08 06:43] LABS: CALCIUM, SERUM 8.7 mg/dL (8.5-10.1); CREATININE 0.8 mg/dL (0.6-1.3); MAGNESIUM 1.7 mg/dL (1.8-2.4); PHOSPHORUS 3.9 mg/dL (2.5-4.9); POTASSIUM 4.3 mmol/L (3.5-5.1)
--- NOTE | 2018-06-08 06:44 | NUR ---
RN CLOSING NOTES PT REMAINS STABLE ON 4L VIA MASK. PT REFUSED BIPAP. NO ACUTE CHANGES IN CONDITION DURING SHIFT. SAFETY PRECAUTIONS REMAIN IN PLACE. INVASIVE LINES REMAIN PATENT AND INTACT. WILL ENDORSE TO ALEXA CHAMPION FOR GEO.
[2018-06-08] MEDS: ACETYLCYSTEINE 10% SOLN 400 MG/4 ML VIAL NEB SCH ×2 (07:18→15:52)
[2018-06-08] MEDS: APIXABAN 5 MG TABLET PO SCH ×2 (10:21→17:07)
[2018-06-08] MEDS: LACTOBACILLUS RHAMNOSUS GG 1 EACH CAP.SPRINK PO SCH ×2 (10:24→17:05)
[2018-06-08] MEDS: MODAFINIL 100 MG TABLET PO SCH (10:24)
[2018-06-08] MEDS: FLUTICASONE PROPIONATE 16 GM BOTTLE NS SCH ×3 (10:24→17:06)
[2018-06-08] MEDS: PANTOPRAZOLE 40 MG TABLET.DR PO SCH (10:24)
[2018-06-08] MEDS: TAMSULOSIN 0.4 MG CAP.SR.24H PO SCH (10:24)
[2018-06-08] MEDS: DRONEDARONE HYDROCHLORIDE 400 MG TABLET PO SCH ×2 (10:26→17:06)
[2018-06-08] MEDS: KETOCONAZOLE 2% CREAM 15 GM TUBE TP SCH ×2 (10:27→17:07)
[2018-06-08] MEDS: VANCOMYCIN 1 GM in IV D5W 250 ML IV SCH (11:51)
[2018-06-08] MEDS: cetrizine 10 MG TABLET PO SCH (11:53)
--- NOTE | 2018-06-08 12:08 | NUR ---
RN NOTE FLONASE WAS HELD AND NOT ADMINISTERED BECAUSE IT WAS ADMIISTERED EARLIER WITH 0900 MEDS. WILL GIVE NEXT DOSE.
[2018-06-08] MEDS: Magnesium 1GM/D5W 100ML PREMIX 100 ML IV SCH ×2 (14:00→15:28)
[2018-06-08] MEDS ORDERED: VANCOMYCIN 1 GM in IV D5W 250 ML IV SCH (15:00)
--- NOTE | 2018-06-08 19:10 | NUR ---
RN NOTE PT BECAME SHORT OF BREATH ON NC 2.0 L/MIN. PT WASPLACED ON A VENTURI MASK 9.0 L/MIN AND RT CALLED. RT SUCTIONED HIM AND BIPAP APPLIED.
[2018-06-09] VITALS: BP 112/66
--- NOTE | 2018-06-09 | NUR ---
PT PLACED ON BIPAP FOR SLEEP
[2018-06-09] MEDS: ALBUTEROL HALF STRENGTH 1.25 MG/3 ML VIAL.NEB NEB SCH ×5 (00:28→15:56)
[2018-06-09] MEDS: IPRATROPIUM NEB FS 0.5 MG/2.5 ML AMPUL.NEB NEB SCH ×5 (00:28→15:56)
[2018-06-09] MEDS: ACETYLCYSTEINE 10% SOLN 400 MG/4 ML VIAL NEB SCH ×3 (00:28→15:56)
[2018-06-09 04:00] VITALS: BP 105/77
[2018-06-09 06:30] LABS: BASOPHILS # (AUTO) 0.1 /CMM (0.0-0.2); EOSINOPHILS % (AUTO) 8.7 % (0.0-6.0); HEMATOCRIT 37 % (39-51); HEMOGLOBIN 11.8 g/dL (13.5-17.5); LYMPHOCYTES # (AUTO) 2.4 /CMM (0.8-4.8); LYMPHOCYTES % (AUTO) 26.2 % (20.0-44.0); MEAN CORPUSCULAR HGB CONC 32 g/dl (31.0-36.0); MEAN CORPUSCULAR VOLUME 91 fL (80-96); MONOCYTES # (AUTO) 0.7 /CMM (0.1-1.30); MONOCYTES % (AUTO) 7.9 % (2.0-12.0); NEUTROPHILS # (AUTO) 5.1 /CMM (1.8-8.9); NEUTROPHILS % (AUTO) 56.2 % (43.0-81.0); PLATELET COUNT (AUTO) 231 /CMM (150-450); RED BLOOD CELL COUNT(AUTO) 4.09 MIL/uL (4.5-6.0); WHITE BLOOD COUNT (AUTO) 9.1 K/uL (4.3-11.0)
[2018-06-09 06:38] LABS: ALBUMIN 2.1 g/dL (3.4-5.0); BILIRUBIN,TOTAL 0.2 mg/dL (0.2-1.0); CALCIUM, SERUM 8.8 mg/dL (8.5-10.1); CREATININE 0.8 mg/dL (0.6-1.3); MAGNESIUM 1.7 mg/dL (1.8-2.4); PHOSPHORUS 3.5 mg/dL (2.5-4.9); TOTAL PROTEIN, SERUM 6.2 g/dL (6.4-8.2)
--- NOTE | 2018-06-09 07:07 | NUR ---
RN NOTES RECEIVED PT ON BED, A/Ox4, ON 4L O2 N/C , RESPIRATION EVEN AND UNLABORED, NO SOB NOTED, ON TELE SR HR IN 70'S , NO DISTRESS NOTED, SR UP x3, CALL LIGHT WITHIN EASY REACH, BED LOCKED AND IN LOWEST POSITION , CONTINUE TO MONITOR.
[2018-06-09 08:00] VITALS: BP 119/79
[2018-06-09] MEDS: PANTOPRAZOLE 40 MG TABLET.DR PO SCH (09:06)
[2018-06-09] MEDS: FLUTICASONE PROPIONATE 16 GM BOTTLE NS SCH (09:06)
[2018-06-09] MEDS: APIXABAN 5 MG TABLET PO SCH (09:06)
[2018-06-09] MEDS: KETOCONAZOLE 2% CREAM 15 GM TUBE TP SCH (09:06)
[2018-06-09] MEDS: DRONEDARONE HYDROCHLORIDE 400 MG TABLET PO SCH (09:07)
[2018-06-09] MEDS: TAMSULOSIN 0.4 MG CAP.SR.24H PO SCH (09:07)
[2018-06-09] MEDS: cetrizine 10 MG TABLET PO SCH (09:07)
[2018-06-09] MEDS: LACTOBACILLUS RHAMNOSUS GG 1 EACH CAP.SPRINK PO SCH (09:07)
[2018-06-09] MEDS: MODAFINIL 100 MG TABLET PO SCH (09:07)
[2018-06-09] MEDS: Magnesium 1GM/D5W 100ML PREMIX 100 ML IV SCH ×2 (10:30→11:51)
[2018-06-09 12:00] VITALS: BP 113/59
[2018-06-09] MEDS ORDERED: KETO15CR2 TP (13:49)
[2018-06-09] MEDS ORDERED: ALBU1.25 NEB (13:49)
[2018-06-09] MEDS ORDERED: CETI10TA14 PO (13:49)
[2018-06-09] MEDS ORDERED: FLUT16SP16 NS (13:49)
--- NOTE | 2018-06-09 14:00 | NUR ---
RN NOTES REPORT GIVEN TO [facility] , SPOKEN WITH CORTNEY LIU. PT AGREED TO GO TO [facility] .
--- NOTE | 2018-06-09 15:45 | NUR ---
RN NOTES EMT AT THE BEDSIDE TO REPLENISHMENT BUYER PT TO SNF. PT C/O CHEST PAIN . DR HERCULES NOTIFED, CHEST PAIN IS NOT CARDIAC RELATED PER DR HERCULES , PT WILL BE DISCHARGE TO SNF PER DR HERCULES . PT STATED DOES NOT WANT TO GO TO [facility] AND IT IS FAR FROM FRIENDS AND FAMILY IN [place] , BUT HAS NO CHOICE .
[2018-06-09 16:00] VITALS: BP_SYST 118; BP_SYST 135; BP_DIAS 65
--- NOTE | 2018-06-09 16:00 | NUR ---
RN NOTES PICC LINE D/JULIANA
--- NOTE | 2018-06-09 16:08 | NUR ---
RN NOTES PT AGREED TO TO SNF AND [facility] CHEST PAIN AT THIS TIME .
--- NOTE | 2018-06-09 16:24 | NUR ---
RN NOTES PT LEFT THE FLOOR TO MAIN ENTRANCE ACCOMPANIED BY EMT PERSONNEL IN STABLE CONDITION. NO DISTRESS NOTED .
== END 2018-06-09 16:30 | DRG 139 ==
LOC: ER 14:44 → TELE 20:00 → ICU 06-03 00:02 → TELE-TD 06-07 21:42 → MEDSG1 06-09 11:43
PROVIDERS: ADMIT Family Medicine; ATTEND Family Medicine
PROC: 02HV33Z Insertion of Infusion Device into Superior Vena Cava, Percutaneous Approach (ICD-10-PCS; principal; 2018-06-03)
PROC: B548ZZA Ultrasonography of Superior Vena Cava, Guidance (ICD-10-PCS; principal; 2018-06-03)
PROC: 5A09557 Assistance with Respiratory Ventilation, Greater than 96 Consecutive Hours, Continuous Positive Airway Pressure (ICD-10-PCS; principal; 2018-06-03)
DX: J15.9 Unspecified bacterial pneumonia (principal); J96.21 Acute and chronic respiratory failure with hypoxia; N17.0 Acute kidney failure with tubular necrosis; I11.0 Hypertensive heart disease with heart failure; I50.32 Chronic diastolic (congestive) heart failure; I49.5 Sick sinus syndrome; T17.990A Other foreign object in respiratory tract, part unspecified in causing asphyxiation, initial encounter; E44.1 Mild protein-calorie malnutrition; J90 Pleural effusion, not elsewhere classified; I48.91 Unspecified atrial fibrillation; E83.42 Hypomagnesemia; I25.10 Atherosclerotic heart disease of native coronary artery without angina pectoris; J96.22 Acute and chronic respiratory failure with hypercapnia; J98.11 Atelectasis; Z95.0 Presence of cardiac pacemaker; Z91.19 Patient's noncompliance with other medical treatment and regimen; Z87.891 Personal history of nicotine dependence; Z79.01 Long term (current) use of anticoagulants; Z79.899 Other long term (current) drug therapy; F10.21 Alcohol dependence, in remission; E66.2 Morbid (severe) obesity with alveolar hypoventilation; Z68.43 Body mass index [BMI] 50.0-59.9, adult; J44.9 Chronic obstructive pulmonary disease, unspecified; X58.XXXA Exposure to other specified factors, initial encounter; Y92.009 Unspecified place in unspecified non-institutional (private) residence as the place of occurrence of the external cause; H69.90 Unspecified Eustachian tube disorder, unspecified ear
CPT/HCPCS: 36415; 36569; 36600; 71045-TC; 76604-TC; 76770-TC; 80048-TC; 80053-TC; 80061-TC; 80076-TC; 80202-TC; 81000-TC; 82570-TC; 82803-TC; 83735-TC; 83880; 84100-TC; 84155-TC; 84300-TC; 84484-TC; 85025-TC; 85610-TC; 85730-TC; 87070-TC; 87081-TC; 93307-TC; 94668-TC; 94799-TC; A4216; C1751; G0378; J0692; J1940; J3370; J3475; J7030; J7042; J7050; J7060